=== PATIENT | female | born 2000 ===

== ENCOUNTER 2020-06-03 20:38 | Inpatient (IN) ==
[2020-06-03] MEDS ORDERED: BUTORPHANOL 2 MG/ML VIAL IV PRN (20:53)
[2020-06-03] MEDS: LACTATED RINGERS 1,000 ML IV SCH (20:55)
[2020-06-03 21:13] LABS: Basophils % 0.4 % (0.0-0.8); Eosinophils # 0.1 10*3/uL (0.0-0.87); Eosinophils % 1.1 % (0.00-10.9); Hematocrit 28.7 VOL% (35.7-47.0); Hemoglobin 9.3 GM/DL (12.0-16.0); Immature Granulocytes % 0.5 %; Immature Granulocytes Absolute 0.04 #; Lymphocytes # 2.3 10*3/uL (1.4-4.0); Lymphocytes % 30.4 % (21.3-54.2); Mean Corpuscular HGB Conc 32.4 GM/DL (32-36); Mean Platelet Volume 9.3 FL (9.6-12.0); Neutrophils % 59.6 % (38.7-73.9); Platelet Count 264 T/CUMM (130-400); Red Cell Distribution Width 14.6 % (9.3-17.3); White Blood Count 7.5 T/CUMM (4-12)
[2020-06-03 21:31] LABS: Albumin 2.4 G/DL (3.4-5.0); Bilirubin,Total 0.8 MG/DL (0.2-1.0); Calcium 8.6 MG/DL (8.5-10.1); Osmolality,Calculated 273.8 MOS/KG (273-304); Total Protein 7.4 G/DL (6.4-8.3)
[2020-06-04] MEDS: ONDANSETRON 4 MG/2 ML VIAL IV PRN ×3 (03:09→17:09)
[2020-06-04] MEDS ORDERED: hydrALAZINE 20 MG/1 ML VIAL IV ONE (05:39)
[2020-06-04] MEDS: LACTATED RINGERS 1,000 ML IV SCH ×2 (06:31→12:47)
[2020-06-04 06:58] LABS: INR 0.9; PT Patient Result 9.9 SECS (9.8-11.9); Partial Thromboplastin Time 27.3 SECS (23.9-33.8)
[2020-06-04 07:02] LABS: Albumin 2.5 G/DL (3.4-5.0); Bilirubin,Total 2.3 MG/DL (0.2-1.0); Calcium 8.8 MG/DL (8.5-10.1); Osmolality,Calculated 271.8 MOS/KG (273-304); Total Protein 7.4 G/DL (6.4-8.3)
[2020-06-04] MEDS ORDERED: ONDANSETRON 4 MG/2 ML VIAL IV PRN ×2 (08:17→17:12)
[2020-06-04] MEDS: MEPERIDINE 50 MG/1 ML VIAL IV PRN ×2 (08:24→17:08)
[2020-06-04] MEDS ORDERED: hydrALAZINE 20 MG/1 ML VIAL IV PRN ×2 (09:50→20:21)
[2020-06-04] MEDS ORDERED: OXYTOCIN/LR 20 UNIT/1,000 ML BAG IV SCH (10:00)
[2020-06-04] MEDS ORDERED: hydrOXYzine HCL 25 MG/1 ML VIAL IM PRN (10:23)
[2020-06-04] MEDS ORDERED: FAMOTIDINE 20 MG/2 ML VIAL IV ONE (10:23)
[2020-06-04] MEDS ORDERED: NALOXONE 0.4 MG/ML VIAL IV PRN (10:23)
[2020-06-04] MEDS ORDERED: diphenhydrAMINE 50 MG/1 ML VIAL IV PRN ×2 (10:23)
[2020-06-04] MEDS ORDERED: PROMETHAZINE 25 MG/1 ML VIAL IM ONE (10:23)
[2020-06-04] MEDS ORDERED: ePHEDrine 50 MG/ML VIAL IV PRN (10:23)
[2020-06-04] MEDS ORDERED: CITRIC ACID/SODIUM CITRATE 30 ML UDCUP PO ONE (10:23)
[2020-06-04] MEDS ORDERED: fentaNYL 2 MCG/ROPIV 0.2% EPID 100 ML EPIDURAL SCH (10:30)
[2020-06-04 12:22] LABS: Apearance,Urine CLEAR (Clear); Bilirubin,Urine Negative (Negative); Blood, Urine Negative (Negative); Glucose,Urine (UA) Negative (Negative); Ketones,Urine 20 mg/dL (Negative); Mucus,Urine Occasional /LPF (Occasional); Nitrite,Urine Negative (Negative); Protein,Urine 30 MG/DL; RBC,Urine <1 /HPF (0-4); Squamous Epithelial Cell,Urine Occasional /HPF (0-10); Urine Color Yellow (Yellow); Urine Specific Gravity 1.012 (1.001-1.035); Urine Urobilinogen < 2.0 EU/DL (0.2-1.0); WBC,Urine <1 /HPF (0-6)
[2020-06-04] MEDS ORDERED: miSOPROStoL 200 MCG TABLET ONE ×2 (14:46→16:36)
[2020-06-04] MEDS ORDERED: CARBOPROST TROMETHAMINE 250 MCG/ML AMP IM ONE (14:46)
[2020-06-04] MEDS ORDERED: LIDOCAINE 1% 50 ML VIAL ONE (16:34)
[2020-06-04] MEDS ORDERED: METHYLERGONOVINE 0.2 MG/1 ML AMP ONE (16:35)
[2020-06-04] MEDS ORDERED: DIPH/TET/ACEL PERT BOOSTER VACCINE 0.5 ML VIAL IM ONE (17:12)
[2020-06-04] MEDS ORDERED: RHO(D) IMMUNE GLOBULIN 300 MCG SYRINGE IM ONE (17:12)
[2020-06-04] MEDS ORDERED: OXYTOCIN/LR 20 UNIT/1,000 ML BAG IV ONE (17:12)
[2020-06-04] MEDS ORDERED: LANOLIN 50% CREAM 0.3 OZ TUBE TOP PRN (17:12)
[2020-06-04] MEDS ORDERED: HYDROCORTISONE 2.5% RECTAL CREAM 30 GM TUBE TOP PRN (17:12)
[2020-06-04] MEDS ORDERED: BISACODYL 10 MG SUPP RECTAL PRN (17:12)
[2020-06-04] MEDS ORDERED: WITCH HAZEL PADS 100/JAR TOP PRN (17:12)
[2020-06-04] MEDS ORDERED: oxyCODONE/ACETAMINOPHEN 5-325 MG TABLET PO PRN ×2 (17:12)
[2020-06-04] MEDS ORDERED: BENZOCAINE 20%/MENTHOL 0.5% SPRAY 56 GM CAN TOP PRN (17:12)
[2020-06-04] MEDS ORDERED: MEASLES/MUMPS/RUBELLA VACCINE 0.5 ML VIAL SUBCUT ONE (17:12)
[2020-06-04 17:37] LABS: Cord Venous Blood PCO2 39.5 MMHG; Cord Venous Blood PO2 26.2 MMHG
[2020-06-04] MEDS: ACETAMINOPHEN 325 MG TABLET PO PRN (19:40)
[2020-06-05] MEDS: DOCUSATE SODIUM 100 MG CAPSULE PO SCH ×3 (03:07→20:40)
[2020-06-05 06:24] LABS: Basophils % 0.3 % (0.0-0.8); Eosinophils % 0.2 % (0.00-10.9); Hematocrit 24.1 VOL% (35.7-47.0); Hemoglobin 8.1 GM/DL (12.0-16.0); Immature Granulocytes % 0.5 %; Immature Granulocytes Absolute 0.06 #; Lymphocytes # 2.2 10*3/uL (1.4-4.0); Lymphocytes % 18.8 % (21.3-54.2); Mean Corpuscular HGB Conc 33.6 GM/DL (32-36); Mean Corpuscular Volume 84.6 FL (87-102); Mean Platelet Volume 9.9 FL (9.6-12.0); Monocytes % 6.3 % (1.7-12.7); Neutrophils % 73.9 % (38.7-73.9); Platelet Count 235 T/CUMM (130-400); Red Blood Count 2.85 MC/CUMM (3.8-5.5); Red Cell Distribution Width 14.6 % (9.3-17.3); White Blood Count 11.8 T/CUMM (4-12)
[2020-06-05] MEDS: ACETAMINOPHEN 325 MG TABLET PO PRN (14:15)
[2020-06-05] MEDS: IRON (CARBONYL)/VIT C/B12/FA TABLET PO SCH (14:46)
[2020-06-05] MEDS: IBUPROFEN 800 MG TABLET PO PRN (15:46)
[2020-06-06 07:21] VITALS: BP 146/86
[2020-06-06] MEDS: IRON (CARBONYL)/VIT C/B12/FA TABLET PO SCH (08:55)
[2020-06-06] MEDS: DOCUSATE SODIUM 100 MG CAPSULE PO SCH (08:55)
[2020-06-06] MEDS: IBUPROFEN 800 MG TABLET PO PRN (11:34)
== END 2020-06-06 13:40 | disposition home or self-care (01) | DRG 560 ==
LOC: N.LDOUT 20:38 → N.LD 20:38 → N.OB 06-04 21:55
PROVIDERS: ADMIT Obstetrics & Gynecology; ATTEND Obstetrics & Gynecology